=== PATIENT | male | born 1985 | race Caucasian/White ===

== ENCOUNTER 2016-11-18 20:35 | Inpatient (IN) | payer OTHER ==
--- NOTE | ~2016-11-18 | US6 ---
[facility] A Service of [facility] RADIOLOGY TEXT RESULTS PATIENT: PRABHU BASS LOCATION: [facility] : 87 UNIT #: [id number] AGE: [address]: Tabby Covarrubias MD SEX: M ORDER DR: [id number] [address] [address] [id number] I MR#: [id number] Acc #: [id number] NAME: PRABHU BASS : 1985 SEX: M STUDY DATE/TIME: 11/20/2016 8:42 UNIT: [facility] ROOM: [facility] STUDY DESCRIPTION: US Abdominal Limited Attending Physician: Tabby Covarrubias M.D. Ordering Physician: Jesus Alberto Mcgrath M.D. Primary Care Physician: Rosi Cortez M.D. MEDICAL IMAGING REPORT This report is preliminary unless electronic signature is present EXAM Right upper quadrant ultrasound HISTORY Right upper quadrant pain for 3 days. FINDINGS Ultrasound examination of the right upper quadrant demonstrates the liver is unremarkable. Gallbladder is normal. No gallstones or gallbladder distension or wall thickening. No biliary ductal dilatation. The common bile duct measures 3 mm in diameter. Survey of the right kidney demonstrates no hydronephrosis or perinephric fluid. The pancreas was not visualized due to overlying bowel gas. The upper abdominal IVC and aorta were not visualized due to overlying bowel gas. IMPRESSION 1. The liver and gallbladder are unremarkable. 2. The pancreas was not visualized due to overlying bowel gas. 3. No gallstones or biliary dilatation. Dictated by... Ricardo Kumar M.D. THIS IS AN ELECTRONICALLY VERIFIED REPORT Ricardo Kumar M.D. at 11/20/2016 10:50 PM DFL/psc TD: 11/20/2016 21:10 JOB #: [id number] MEDICAL IMAGING REPORT [facility] A Service of [facility] RADIOLOGY TEXT RESULTS PATIENT: PRABHU BASS LOCATION: [facility] : 87 UNIT #: [id number] AGE: [address]: Tabby Covarrubias MD SEX: M ORDER DR: Page 1 of 1 COPY
--- NOTE | ~2016-11-18 | CR126 ---
[facility] A Service of [facility] & [facility] RADIOLOGY TEXT RESULTS PATIENT: PRABHU BASS LOCATION: [facility] 228-01 : 87 UNIT #: [id number] AGE: [address]: Paul Shane MD SEX: M ORDER DR: [id number] [facility]. [place], [place] [address] [id number] I MR#: [id number] Acc #: [id number] NAME: PRABHU BASS : 1985 SEX: M STUDY DATE/TIME: 11/19/2016 15:36 UNIT: [facility] ROOM: [facility] STUDY DESCRIPTION: CR Foot Complete Min 3 View Lt Attending Physician: Paul Shane M.D. Ordering Physician: Physician Non-Staff Primary Care Physician: Rosi Cortez M.D. MEDICAL IMAGING REPORT This report is preliminary unless electronic signature is present EXAM Left foot 3 views HISTORY Foot pain and swelling for 3 days. No injury. FINDINGS The tarsal, metatarsal, and phalangeal elements are all anatomically normal in position and alignment. There are no articular defects. No fractures or radiopaque foreign bodies in the soft tissues are apparent. IMPRESSION Normal foot. Dictated by... Ricardo Kumar M.D. THIS IS AN ELECTRONICALLY VERIFIED REPORT Ricardo Kumar M.D. at 11/19/2016 11:13 PM DFL/daina TD: 11/19/2016 21:30 JOB #: [id number] MEDICAL IMAGING REPORT Page 1 of 1 COPY
--- NOTE | ~2016-11-18 | CR72 ---
[facility] A Service of [facility] & [facility] RADIOLOGY TEXT RESULTS PATIENT: PRABHU BASS LOCATION: [facility] : 87 UNIT #: [id number] AGE: [address]: Claude Bauer MD SEX: M ORDER DR: [id number] [facility] [address]. [place], [place] [address] [id number] E MR#: [id number] Acc #: [id number] NAME: PRABHU BASS : 1985 SEX: M STUDY DATE/TIME: 11/18/2016 22:05 UNIT: [facility] ROOM: STUDY DESCRIPTION: CR Chest Single View Portable Attending Physician: Claude Bauer M.D. Ordering Physician: Claude Bauer M.D. Primary Care Physician: Rosi Cortez M.D. MEDICAL IMAGING REPORT This report is preliminary unless electronic signature is present EXAM Single view chest INDICATIONS Chest pain. Cough and congestion. FINDINGS Single portable AP view of chest without comparison. The heart and mediastinal contour is normal. Lungs are clear. No pleural effusion. IMPRESSION No acute cardiopulmonary findings. Dictated by... Leandro Felipe M.D. THIS IS AN ELECTRONICALLY VERIFIED REPORT Leandro Felipe M.D. at 11/19/2016 12:04 AM OSWALD/daina TD: 11/18/2016 23:59 JOB #: [id number] MEDICAL IMAGING REPORT Page 1 of 1 COPY
--- NOTE | ~2016-11-18 | US85 ---
[facility] A Service of [facility] & [facility] RADIOLOGY TEXT RESULTS PATIENT: PRABHU BASS LOCATION: A 228-01 : 87 UNIT #: [id number] AGE: [address]: Tabby Covarrubias MD SEX: M ORDER DR: [id number] [facility] [address] [facility]. [place], [place] [address] [id number] I MR#: [id number] Acc #: [id number] NAME: PRABHU BASS : 1985 SEX: M STUDY DATE/TIME: 11/20/2016 8:27 UNIT: [facility] ROOM: [facility] STUDY DESCRIPTION: US LE Veins Unilat or Ltd Stdy Attending Physician: Tabby Covarrubias M.D. Ordering Physician: Ed Doctor [id number] [facility] Primary Care Physician: Rosi Cortez M.D. MEDICAL IMAGING REPORT This report is preliminary unless electronic signature is present EXAM Left lower extremity venous duplex, 11/20/2016 HISTORY Left lower extremity pain, ankle pain for 4 days with no known injury. Evaluate for deep vein thrombosis. TECHNIQUE Venous ultrasound examination of the left lower extremity was performed using grayscale, spectral Doppler and color flow Doppler imaging. FINDINGS The examination is negative. There is no evidence of left lower extremity deep venous thrombus from the groin to the lower calf. Visualized greater saphenous vein is also patent. IMPRESSION Negative examination. No evidence of left lower extremity deep venous thrombosis. Dictated by... Cj Regalado M.D. THIS IS AN ELECTRONICALLY VERIFIED REPORT Cj Regalado M.D. at 11/21/2016 8:00 AM STUART/rach TD: 11/20/2016 10:36 JOB #: [id number] MEDICAL IMAGING REPORT Page 1 of 1 COPY
--- NOTE | ~2016-11-18 | DS ---
Unit #: [id number] #: [id number] Patient: PRABHU BASS [id number] [address] [address] [id number] I MR#: [id number] NAME: PRABHU BASS ROOM: 228 Age: 31 Sex: M Admission Date: 11/19/2016 : 1985 Discharge Date: 11/21/2016 Attending Physician: Tabby Covarrubias M.D. Primary Care Physician: Rosi Cortez M.D. DISCHARGE SUMMARY DISCHARGE DIAGNOSES 1. Acute pancreatitis, unknown etiology. 2. Left upper quadrant abdominal pain. 3. Left foot pain and swelling. 4. Recent right total hip arthroplasty. 5. Ongoing tobacco abuse. CONSULTANTS None. PROCEDURES None. DIAGNOSTIC STUDIES IMAGING: X-ray of chest on 11/18/16. Impression is no acute cardiopulmonary findings. CT angio chest on 11/19/16. Impression: Negative for pulmonary embolus. Mild dependent airspace opacities in both lung bases have the appearance most typical of atelectasis. Moderate acute pancreatitis. No acute loculated fluid collections are identified; however, there is some fluid tracking along the right paracolic gutter and root of the mesentery. X-ray of the foot on 11/19/16. Impression: Normal foot. Left lower extremity Doppler. Impression: Negative examination. No evidence of left lower extremity deep venous thrombosis. Right upper quadrant abdominal ultrasound. Impression: The liver and gallbladder are unremarkable. The pancreas is not visualized due to overlying bowel gas. No gallstones or biliary dilation. CT abdomen and pelvis on 11/20/16. Impression: Significantly improved peripancreatic inflammatory change in comparison to yesterday's CT of the chest. Appearance suggests a significant improvement in acute pancreatitis. On the current study, there is only mild peripancreatic fat stranding and haziness. There is no peripancreatic fluid collection. There is no indication of pseudocyst. No pancreatic neck lesion or ductal dilation. Decreased amount of fluid tracking along the anterior right pararenal fascia. There is a small amount of free fluid in the deep pelvis, likely related to the patient's pancreatitis. This is not a drainable fluid collection. Hypodense, 1.4 cm, rounded focus segment VII of liver not seen on yesterday's enhanced CT of the chest, probably a hemangioma. Best fully characterized with multiphase contrasted-enhanced Unit #: [id number] #: [id number] Patient: PRABHU BASS MRI or CT. Given patient's young age and in the absence of risk factors, benign etiology favored. The alimentary canal is unremarkable. Decreasing atelectasis in bilateral lung bases. LABORATORY: Day of discharge CMP: Glucose 79, BUN 7, creatinine 0.7, sodium 135, potassium 4.1, chloride 97, CO2 29, calcium 9.1, total protein 6.8, albumin 3.5, total bilirubin 0.5, AST of 18, ALT of 23, and alk phos 104. Amylase 162 and lipase 184. Please note amylase is reduced from admitting of 941 and lipase reduced from . Patient's cholesterol panel includes total cholesterol 197, triglycerides 190, LDL 131, and HDL 38. CBC with WBC of 7, RBC 4.53, hemoglobin 13.3, hematocrit 39.6, MCV 87.4, MCH 29.4, MCHC 33.6, RDW 12.7, platelets 221, and MPV 8.6. HOSPITAL COURSE Patient is a 31-year-old male with past medical history of GERD, right hip replacement. Was brought to the emergency department due to severe left upper quadrant abdominal pain. About 2-3 weeks ago, patient had a right hip replacement done at [place]. 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 Patient stated that he has been taking pain medication following the surgery and had been weaning himself off the medicine and had not had any in the past couple of days, 48-72 hours prior to admission. He started to have severe left upper quadrant abdominal pain with radiation to the flank. Also states that over the past several hours, he started to develop symptoms of nausea and vomiting. Emergency department routine labs revealed lipase of 1192 and amylase of 941. Other workup than a CT shows a CTA of the chest, which is negative. Patient was admitted for acute pancreatitis as well as left upper quadrant abdominal pain. Patient was treated with bowel rest, IV fluid hydration, and IV pain management. Patient had a left upper quadrant abdominal ultrasound, which had normal liver and gallbladder as well as no gallstones or biliary dilation. Patient also had CT abdomen and pelvis, which found that the peripancreatic inflammation had significantly improved. There is no peripancreatic fluid collection. There is no indication of pseudocyst. No pancreatic mass lesion or ductal dilation. After two days of bowel rest and IV fluid hydration and pain management, patient has much relief in terms of abdominal pain, although states that he still has some persistent nagging pain. His amylase has significantly reduced from 941 to 162 and lipase has reduced from 1192 to 184. Patient did tolerate a regular diet. Patient was also complaining of right dorsal foot pain and swelling. Patient told me that about three weeks prior to admission, he had stubbed his foot on a chair and had had significant swelling then. X-ray of the foot was unremarkable. Doppler was negative for DVT. Explained to patient that he most likely has dependent swelling and pain. Therefore, he should elevate his leg. He voiced understanding. Patient is stable for discharge home to follow up with orthopedic surgeon as was prior to hospitalization. Follow up with primary care physician within 1-2 weeks. Acute hepatitis panel is still pending and this can be followed up with his primary care physician as well. Dictated by... Hellen Valdez PA-C for Henrique Mitchell/delfina TD: 11/23/2016 05:46 Unit #: [id number] #: [id number] Patient: PRABHU BASS JOB #: [id number] DISCHARGE SUMMARY Page 1 of 1 X X DISCHARGE SUMMARY
--- NOTE | ~2016-11-18 | CT2 ---
[facility] A Service of [facility] & [facility] RADIOLOGY TEXT RESULTS PATIENT: PRABHU BASS LOCATION: C2A 228- : 87 UNIT #: [id number] AGE: [address]: Tabby Covarrubias MD SEX: M ORDER DR: [id number] [facility] [address] [facility] [facility]. [place], [place] [address] [id number] I MR#: [id number] Acc #: [id number] NAME: PRABHU BASS : 1985 SEX: M STUDY DATE/TIME: 11/20/2016 17:28 UNIT: [facility] ROOM: 228 STUDY DESCRIPTION: CT Abd and Pelv W Cont Attending Physician: Tabby Covarrubias M.D. Ordering Physician: Tabby Covarrubias M.D. Primary Care Physician: Rosi Cortez M.D. MEDICAL IMAGING REPORT This report is preliminary unless electronic signature is present EXAM CT abdomen and pelvis HISTORY Abdominal pain, increased lipase, severe abdomen pain 2-3 days and vomiting. Left side under ribs. Question acute pancreatitis. TECHNIQUE CT abdomen and pelvis performed with administration of 100 mL Isovue-370 intravenously. Enteric contrast also administered. Most recent dedicated CT abdomen for comparison is dated 11/26/2007. There are limited views of the upper abdomen from CT pulmonary angiography dated 11/19/2016. This CT exam was performed with one or more of the following radiation dose reduction techniques: Automatic exposure control, adjustment of mA and/or kV according to patient size, and iterative reconstruction. FINDINGS Dependent atelectasis at the bilateral lung bases generally improved compared to yesterday's CT chest. The inferior heart and pericardium are unremarkable. In segment VII of the liver, there is a 1.4 cm hypodense focus, not seen on yesterday's CT of the chest. This is probably an hemangioma given variable visualization on contrast-enhanced studies. It is best further characterized with multiphase contrast-enhanced MRI or CT. There is excreted contrast material in otherwise unremarkable gallbladder. The spleen is unremarkable. There is a significant decrease in peripancreatic inflammatory change compared to yesterday's CT chest. There is mild peripancreatic fat stranding and haziness, but no fluid collection. The trace amount of fluid seen tracking into the anterior right pararenal fascia on yesterday's CT chest is significantly decreased on the current study. There is no evidence of pseudocyst formation. There is no biliary or pancreatic ductal dilatation. The adrenal glands, kidneys, ureters and urinary bladder are unremarkable. [facility] A Service of [facility] RADIOLOGY TEXT RESULTS PATIENT: PRABHU BASS LOCATION: C2A 228-01 : 87 UNIT #: [id number] AGE: [address]: Tabby Covarrubias MD SEX: M ORDER DR: CT PELVIS: Trace amount of free fluid in the pelvis likely related to the patient's pancreatitis. Not a drainable fluid collection. Patient is status post right hip arthroplasty. Resulting streak artifact. There is no pelvic or retroperitoneal adenopathy. The distal esophagus, stomach, small bowel, appendix, colon are unremarkable. The aorta is normal in caliber. Portal vein and its major tributaries appear patent. The bony structures are unremarkable. IMPRESSION 1. Significantly improved peripancreatic inflammatory change in comparison to yesterday's CT of the chest. Appearance suggests a significant improvement in acute pancreatitis. On the current study, there is only mild peripancreatic fat stranding and haziness. There is no peripancreatic fluid collection. There is no indication of pseudocyst. No pancreatic mass lesion or ductal dilatation. 2. Decreased amount of fluid tracking along the anterior right pararenal fascia. 3. There is a small amount of free fluid in the deep pelvis, likely related to the patient's pancreatitis. This is not a drainable fluid collection. 4. 1.4 cm hypodense rounded focus segment VII of liver. Not seen on yesterday's contrast-enhanced CT of the chest. Probably a hemangioma. Best fully characterized with multiphase contrast-enhanced MRI or CT. Given patient's young age and in the absence of risk factors, benign etiology favored. 5. The alimentary canal is unremarkable. 6. Decreasing atelectasis at bilateral lung bases. Dictated by... Yony Iglesias M.D. THIS IS AN ELECTRONICALLY VERIFIED REPORT Yony Iglesias M.D. at 11/21/2016 10:26 PM Hakan TD: 11/21/2016 00:06 JOB #: [id number] MEDICAL IMAGING REPORT Page 1 of 1 COPY
--- NOTE | ~2016-11-18 | HP ---
Unit #: [id number] #: [id number] Patient: PRABHU BASS [id number] [address] [address] [id number] I MR#: [id number] NAME: PRABHU BASS ROOM: 228 Age: 31 Sex: M Admission Date: 11/19/2016 : 1985 Attending Physician: Tabby Covarrubias M.D. Primary Care Physician: Rosi Cortez M.D. HISTORY AND PHYSICAL REASON FOR ADMISSION Acute pancreatitis. HISTORY OF PRESENT ILLNESS The patient is a very pleasant 31-year-old male who recently had hip surgery, total right hip replacement, approximately two three weeks ago by Dr. Palacios at [facility]. He stated that he took pain medications afterwards. He gradually weaned himself off of those medications but over the past 48 to 72 hours started developing acute abdominal pain. He also stated that over the past several hours prior to being evaluated here in the emergency room, he developed nausea as well as vomiting episodes. He presented to the ER for further evaluation. While he was evaluated here in the emergency room under routine laboratory studies, it yielded an elevated lipase at greater than 1000 with an elevated amylase as well. A D-dimer was also assessed secondary to vague symptoms and it came back elevated at 3855. Currently, a CTA chest is pending. He states to me that he is otherwise healthy. 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 He states that he had pain over the past several years, saw Dr. Moreno initially and then sought Dr. Palacios' opinion as a second opinion and underwent right hip replacement recently as mentioned above. PAST MEDICAL HISTORY 1. GERD. 2. Right hip replacement. 3. Left hip surgery, details unclear. HOME MEDICATIONS 1. Flexeril. 2. Possibly Prilosec. Medication list not verified. ALLERGIES No known drug allergies. SOCIAL HISTORY Positive tobacco use, one to one and a half packs of cigarettes per day for the past 10-12 years. Occasional social alcohol use. The patient denies any illicit drug use. Denies any IV drug abuse. 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 FAMILY HISTORY Reviewed and noncontributory or non-pertinent. REVIEW OF SYSTEMS Please see HPI. Twelve point otherwise negative except for those positives noted in the HPI. PHYSICAL EXAMINATION VITAL SIGNS: Temperature 97.7, pulse 81, respirations 16, blood pressure 155/93. GENERAL APPEARANCE: The patient is a 31-year-old male lying comfortably, in no acute distress. HEAD EXAM: Atraumatic, normocephalic. EAR EXAM: Tympanic membranes do not reveal any erythema or injection. NECK EXAM: Supple. CVS: S1, S2 without murmur. RESPIRATORY: Clear. GI/ABDOMEN: Tender to palpation in the epigastric area. Nondistended. There is no rebound or guarding noted. EXTREMITIES: Lower extremity exam - no evidence of any lower extremity edema. No calf tenderness. NEUROLOGICAL EXAM: The patient is A and O x3. No evidence of any focal nerve deficits. PSYCHIATRIC EXAM: The patient demonstrates normal mood and affect. DIAGNOSTIC STUDIES LABORATORY: Initial laboratory studies - lipase 1192, amylase 941, white count 14.1, D-dimer elevated at 3855. IMAGING: Chest x-ray performed in the ER does not show any acute process. ER COURSE The patient received 4 mg of morphine as well as Zofran 4 mg IV x1. Normal saline bolus, 1 L, was also administered. INITIAL IMPRESSION 1. Acute pancreatitis. 2. Abdominal pain. 3. Intractable nausea and vomiting. 4. Ongoing tobacco abuse. 5. Recent right hip surgery. 6. Elevated D-dimer, likely secondary to recent surgery. 7. Bilateral hip congenital abnormality, details unclear. PLAN Admission. Med/Surg floor. IV fluids, IV PPI q.12 hours. Ice chips, pain management, symptom control. CTA chest pending although likelihood of acute PE is low as it does not exhibit hypoxia or tachycardia and, at the present time, states he has no chest pain. Recheck a.m. labs. If lipase is trending downwards in a.m., will likely continue conservative management. If lipase remains elevated and/or abdominal pain persists, consideration may be given to CT abdomen and pelvis and/or possible ultrasound to ascertain possible underlying gallstone pancreatitis. Certainly his a.m. triglyceride level will also be assessed. Plans have been reviewed with patient in detail. Expresses understanding Unit #: [id number] #: [id number] Patient: PRABHU BASS and agreement. Dictated by Henrique Mitchell/massimo TD: 11/19/2016 06:13 JOB #: [id number] HISTORY AND PHYSICAL Page 1 of 1 X Tabby Covarrubias MD X HISTORY AND PHYSICAL
--- NOTE | ~2016-11-18 | CT16 ---
[facility] A Service of [facility] RADIOLOGY TEXT RESULTS PATIENT: PRABHU BASS LOCATION: C2A : 87 UNIT #: [id number] AGE: [address]: Tabby Covarrubias MD SEX: M ORDER DR: [id number] [place], [place] [address] [id number] I MR#: [id number] Acc #: [id number] NAME: PRABHU BASS : 1985 SEX: M STUDY DATE/TIME: 11/19/2016 0:57 UNIT: C2 ROOM: 228 STUDY DESCRIPTION: CT Angio Chest for PE Attending Physician: Tabby Covarrubias M.D. Ordering Physician: Claude Bauer M.D. Primary Care Physician: Rosi Cortez M.D. MEDICAL IMAGING REPORT This report is preliminary unless electronic signature is present EXAM CTA chest INDICATION Left-sided chest pain. Left upper quadrant pain for 1 day. Vomiting. Elevated D-dimer. TECHNIQUE CT angiography of the chest utilizing 80 mL Isovue-370 IV contrast. Coronal 3-D MIP reconstructions and standard sagittal reconstructions were obtained. This CT exam was performed with one or more of the following radiation dose reduction techniques: automatic exposure control, adjustment of mA and/or kV according to patient size, and iterative reconstruction. COMPARISON Chest radiograph dated 11/18/2016. FINDINGS No pulmonary embolus. No thoracic aortic aneurysm or dissection. No pericardial or pleural effusion. There are some dependent airspace opacities in both lungs most consistent with atelectasis. No focal consolidation. Central airways are patent. Limited images of the upper abdomen were obtained. There is moderate acute pancreatitis. The pancreas is edematous and there is moderate peripancreatic inflammation. There is some inflammatory stranding extending into the right pericolic gutter and root of the mesentery. No intrahepatic or extrahepatic biliary dilatation. [facility] A Service of [facility] RADIOLOGY TEXT RESULTS PATIENT: PRABHU BASS LOCATION: C2A : 87 UNIT #: [id number] AGE: [address]: Tabby Covarrubias MD SEX: M ORDER DR: No acute osseous abnormalities. IMPRESSION 1. Negative for pulmonary embolus. 2. Mild dependent airspace opacities in both lung bases have the appearance most typical for atelectasis. 3. Moderate acute pancreatitis. No acute loculated fluid collections are identified, however there is some fluid tracking along the right pericolic gutter and root of the mesentery. Dictated by... Leandro Felipe M.D. THIS IS AN ELECTRONICALLY VERIFIED REPORT Leandro Felipe M.D. at 11/19/2016 4:10 AM OSWALD/daina TD: 11/19/2016 03:00 JOB #: [id number] MEDICAL IMAGING REPORT Page 1 of 1 COPY
[~2016-11-18 20:35] MED LIST: VICODIN 5/1 TAB 5/50 PO
[2016-11-18 23:02] LABS: BASOPHIL% 0.2 % (0-2.5); EOSINOPHIL% 0.2 % (0.0-7.0); HEMATOCRIT 44.9 % (38.0-50.0); HEMOGLOBIN 14.8 gm/dL (13.0-16.0); LYMPHOCYTE# 1.3 X10e3 (1.0-3.5); LYMPHOCYTE% 9.1 % (17.0-45.0); MEAN CELL VOLUME 87.6 FL (83-96); MEAN CORPUSCULAR HEMOGLOBIN 28.9 PG (28-34); MEAN PLATELET VOLUME 8.5 FL (6.5-11.5); MONOCYTE# 0.6 X10e3 (0-1.0); NEUTROPHIL# 12.2 X10e3 (1.5-7.1); NEUTROPHIL% 86.5 % (40-75); PLATELET COUNT 253 X10e3 (140-420); RED BLOOD COUNT 5.12 X10e (3.90-5.60); RED CELL DISTRIBUTION WIDTH 12.9 % (11.0-15.5); WHITE BLOOD COUNT 14.1 X10e3 (4.0-10.5)
[2016-11-18 23:04] LABS: DIFF IND NO
[2016-11-18 23:44] LABS: ALBUMIN SERUM 4.2 g/dL (3.5-5.0); BILIRUBIN, DIRECT 0.1 mg/dL (0.0-0.2); BILIRUBIN,INDIRECT 0.3 mg/dL (0.0-0.9); BILIRUBIN,TOTAL 0.4 mg/dL (0.2-2.0); BUN/CREATININE RATIO 11.25; CALCIUM SERUM 9.3 mg/dL (8.4-10.2); CREATININE SERUM 0.8 mg/dL (0.6-1.4); GLOM FILT RATE Estimated 120.8 mL/min (>60); POTASSIUM 3.6 mmol/L (3.5-5.1); PROTEIN TOTAL SERUM 8.2 g/dL (6.0-8.3)
[2016-11-19] MEDS ORDERED: OMEPRAZOLE40 M1 PO (01:59)
[2016-11-19 06:35] LABS: BASOPHIL% 0.2 % (0-2.5); EOSINOPHIL# 0.1 X10e3 (0-0.7); EOSINOPHIL% 0.6 % (0.0-7.0); HEMATOCRIT 42.9 % (38.0-50.0); HEMOGLOBIN 14.1 gm/dL (13.0-16.0); LYMPHOCYTE# 1.6 X10e3 (1.0-3.5); MEAN CELL VOLUME 88.4 FL (83-96); MEAN CORPUSCULAR HGB CONC 32.8 g/dL (30-36); MEAN PLATELET VOLUME 8.8 FL (6.5-11.5); MONOCYTE# 0.6 X10e3 (0-1.0); MONOCYTE% 5.3 % (3.0-12.0); NEUTROPHIL# 9.2 X10e3 (1.5-7.1); NEUTROPHIL% 79.9 % (40-75); PLATELET COUNT 217 X10e3 (140-420); RED BLOOD COUNT 4.85 X10e (3.90-5.60); RED CELL DISTRIBUTION WIDTH 12.9 % (11.0-15.5); WHITE BLOOD COUNT 11.5 X10e3 (4.0-10.5)
[2016-11-19 06:44] LABS: DIFF IND NO
[2016-11-19 08:27] LABS: ALBUMIN SERUM 3.8 g/dL (3.5-5.0); BILIRUBIN,TOTAL 0.3 mg/dL (0.2-2.0); BUN/CREATININE RATIO 8.75; CALCIUM SERUM 9.7 mg/dL (8.4-10.2); CREATININE SERUM 0.8 mg/dL (0.6-1.4); GLOM FILT RATE Estimated 120.8 mL/min (>60); POTASSIUM 4.7 mmol/L (3.5-5.1)
[2016-11-20 06:16] LABS: HEMATOCRIT 41.5 % (38.0-50.0); HEMOGLOBIN 13.7 gm/dL (13.0-16.0); MEAN CELL VOLUME 88.8 FL (83-96); MEAN CORPUSCULAR HEMOGLOBIN 29.2 PG (28-34); MEAN CORPUSCULAR HGB CONC 32.9 g/dL (30-36); RED BLOOD COUNT 4.67 X10e (3.90-5.60); WHITE BLOOD COUNT 9.1 X10e3 (4.0-10.5)
[2016-11-20 07:21] LABS: ALBUMIN SERUM 3.6 g/dL (3.5-5.0); BILIRUBIN,TOTAL 0.4 mg/dL (0.2-2.0); BUN/CREATININE RATIO 6.25; CALCIUM SERUM 9.3 mg/dL (8.4-10.2); CREATININE SERUM 0.8 mg/dL (0.6-1.4); GLOM FILT RATE Estimated 120.8 mL/min (>60); POTASSIUM 4.2 mmol/L (3.5-5.1); PROTEIN TOTAL SERUM 7.4 g/dL (6.0-8.3)
[2016-11-21 07:01] LABS: HEMATOCRIT 39.6 % (38.0-50.0); HEMOGLOBIN 13.3 gm/dL (13.0-16.0); MEAN CELL VOLUME 87.4 FL (83-96); MEAN CORPUSCULAR HEMOGLOBIN 29.4 PG (28-34); MEAN CORPUSCULAR HGB CONC 33.6 g/dL (30-36); MEAN PLATELET VOLUME 8.6 FL (6.5-11.5); RED BLOOD COUNT 4.53 X10e (3.90-5.60); RED CELL DISTRIBUTION WIDTH 12.7 % (11.0-15.5)
[2016-11-21 07:53] LABS: ALBUMIN SERUM 3.5 g/dL (3.5-5.0); BILIRUBIN,TOTAL 0.5 mg/dL (0.2-2.0); BUN/CREATININE RATIO 8.75; CALCIUM SERUM 9.1 mg/dL (8.4-10.2); CREATININE SERUM 0.8 mg/dL (0.6-1.4); GLOM FILT RATE Estimated 120.8 mL/min (>60); POTASSIUM 4.1 mmol/L (3.5-5.1); PROTEIN TOTAL SERUM 6.8 g/dL (6.0-8.3)
[2016-11-21 08:07] LABS: AMYLASE 162 U/L (0-46); LIPASE 184 U/L (22-51)
[2016-11-21] MEDS ORDERED: APAP325 M1 PO (10:12)
[2016-11-23 01:38] LABS: HA AB IGM (HEPPAN) Nonreactive (()); HB CORE AB IGM (HEPPAN) Nonreactive (Nonreactive); HB S AG (HEPPAN) Nonreactive (Nonreactive); HEP C AB (HEPPAN) Nonreactive (Nonreactive); HEP C AB SIGNAL TO CUTOFF 0.01 ratio (<1.00)
== END 2016-11-21 10:49 | disposition home or self-care (01) | DRG 440 ==
LOC: CED 20:35 → C2A 11-19 00:49 → CED 11-19 00:49 → CEDOF 11-19 00:49 → C2A 11-19 01:00 → CEDOF 11-19 01:00 → C2A 11-19 01:39 → CEDOF 11-19 01:39 → C2A 11-19 07:42
PROVIDERS: Emergency Medicine; Family Medicine; Physician Assistant Medical
PROC: B32TYZZ Computerized Tomography (CT Scan) of Left Pulmonary Artery using Other Contrast (ICD-10-PCS; principal; 2016-11-19)
PROC: B32SYZZ Computerized Tomography (CT Scan) of Right Pulmonary Artery using Other Contrast (ICD-10-PCS; 2016-11-19)
DX: K85.90 Acute pancreatitis without necrosis or infection, unspecified (principal); F17.210 Nicotine dependence, cigarettes, uncomplicated; M79.672 Pain in left foot; K21.9 Gastro-esophageal reflux disease without esophagitis; Z96.641 Presence of right artificial hip joint
CPT/HCPCS: 36415; 71010; 71275; 73630; 74177; 76705; 80048; 80053; 80061; 80074; 80076; 82150; 83690; 85025; 85027; 85379; 93971; 94760; 96361; 96374; 96375; 99285; C9113; J2270; J2405; Q9967